=== PATIENT | male | born 1955 | race American Indian/Alaskan Native ===

== ENCOUNTER 2019-11-16 10:37 | Emergency (ER) | payer MEDICARE ==
[2019-11-16 11:24] VITALS: BP 143/93
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
[2019-11-16] MEDS ORDERED: NAPROXEN 500 MG TAB PO ONE (15:00)
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
[2019-11-16] MEDS ORDERED: HYDROcodone/ACETAMINOPHEN 5-325 MG TAB PO ONE (16:32)
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
== END 2019-11-16 17:49 | disposition home or self-care (01) ==
LOC: ED 10:37
DX: S33.5XXA Sprain of ligaments of lumbar spine, initial encounter (principal); I10 Essential (primary) hypertension; Z79.899 Other long term (current) drug therapy; V49.59XA Passenger injured in collision with other motor vehicles in traffic accident, initial encounter; Y93.89 Activity, other specified; Y92.488 Other paved roadways as the place of occurrence of the external cause; Y99.8 Other external cause status
CPT/HCPCS: 72100; 72131; 72220

== ENCOUNTER 2020-07-12 22:16 | Emergency (ER) | payer MEDICARE ==
[2020-07-12 22:52] VITALS: BP 154/86
[2020-07-13] MEDS ORDERED: ONDANSETRON 4 MG ODT TAB PO ONE (00:22)
--- NOTE | 2020-07-13 00:25 | Event Note ---
ED Screening Note Date of service: 07/13/20 Time: 00:23 ED Screening Note: 65-year-old male patient presents to the emergency department [facility] with complaints of nontraumatic right-sided back pain for 3 days. States it "feels like his kidney hurts." He began experiencing associated nausea and vomiting today. Patient has vomited multiple times in triage. No fever. No changes in bowel habits. No urinary symptoms. States he has never been diagnosed with a kidney infection before. General: Awake. Actively vomiting. Neck: Supple. Full range of motion intact. Cardiovascular: Normal peripheral perfusion. Pulmonary: No respiratory distress. Patient is speaking normally without use of accessory muscles. Skin: No apparent rashes or lesions. Neurological: No facial asymmetry. Speech is clear. Follows commands. Patient is alert and oriented. Musculoskeletal: Right CVA tenderness. Psych: Cooperative. Appropriate mood and affect. I have greeted and performed a focused rapid initial assessment of this patient. A comprehensive ED assessment and evaluation of the patient, analysis of all test results, and completion of the medical decision-making process will be conducted by additional ED providers. This initial assessment/diagnostic orders/clinical plan/treatment(s) is/are subject to change based on patients health status, clinical progression and re-assessment. Further treatment and workup at subsequent clinical provider's discretion. Patient/guardian urged not to elope from the ED as their condition may be serious if not clinically assessed and managed.
[2020-07-13 01:22] LABS: Basophils # (Auto) 0.1 K/mm3 (0.0-0.1); Basophils % (Auto) 1.1 % (0.0-1.8); Eosinophils % (Auto) 0.2 % (0.0-4.3); Hematocrit 38.9 % (35.5-45.6); Hemoglobin 13.1 gm/dl (11.8-15.2); Lymphocytes % (Auto) 12.7 % (13.4-35.0); Mean Corpuscular HGB Conc 34 % (32-34); Mean Corpuscular Volume 88 fl (84-94); Monocytes # (Auto) 0.5 K/mm3 (0.0-0.8); Monocytes % (Auto) 6.1 % (0.0-7.3); Platelet Count 231 K/mm3 (140-440); Red Blood Count 4.43 M/mm3 (3.65-5.03); Red Cell Distribution Width 14.9 % (13.2-15.2)
[2020-07-13 01:39] LABS: Alanine Aminotransferase 11 units/L (7-56); Albumin 4.3 g/dL (3.9-5); BUN/Creatinine Ratio 6; Blood Urea Nitrogen 9 mg/dL (9-20); Calcium 9.1 mg/dL (8.4-10.2); Hemolysis Index 5
== END 2020-07-13 07:30 ==
LOC: ED 22:16
DX: M54.6 Pain in thoracic spine (principal); R11.2 Nausea with vomiting, unspecified; Z53.21 Procedure and treatment not carried out due to patient leaving prior to being seen by health care provider
CPT/HCPCS: 36415; 80053; 80320; 83690; 83735; 85025; G0480

== ENCOUNTER 2021-05-03 08:13 | Inpatient (IN) | payer MEDICARE ==
--- NOTE | 2021-05-03 09:24 | Emergency Department Report ---
ED Male HPI - General Chief complaint: Urogenital-Male Stated complaint: painful urination Time Seen by Provider: 05/03/21 08:57 Source: EMS Mode of arrival: Ambulatory Limitations: No Limitations - History of Present Illness Initial comments: 66-year-old -[place] male presents to the ER today with complaints of severe buttocks and rectal pain. Patient states that has been having this pain for the past 7 to 8 days. He reports associated swelling, and difficulty sitting due to the pain. He states that the pain radiates into his testicles. He reports that he has been constipated and has had only one bowel movement in the past 7 to 8 days. He states that stool was small and hard. He denies any rectal bleeding or mucus coming from his stool. He states that he did go to an urgent care for his symptoms and he told him that it was related to hemorrhoids and give him a prescription for creams as well as stool softeners and other me dications that he does not recall the name of. He states that he took all of them and they have not helped his symptoms and he still has not had a proper bowel movement. He reports that he has had issues with urinary hesitancy for few months, but recently started having some dysuria. He denies any hematuria. He denies any isolated testicular pain or swelling. He denies any penile discharge. He has never been evaluated by urologist or have known history of BPH. He denies any associate abdominal pain or back pain. He denies fever or chills. His past medical history significant for hypertension, but he states that he was taken off his medications by his doctor long time ago. He also a dmits to alcohol abuse, but he states that recently he has decreased to just drinking sixpack once a week. Complaint: other (Rectal pain) -: days(s) (7-8 days ago) - Related Data Previous Rx's Medication Instructions Recorded Last Taken Type Methocarbamol [Robaxin] 500 mg PO TID #10 tablet 11/16/19 Unknown Rx Naproxen [Naprosyn] 500 mg PO BID PRN #15 tablet 11/16/19 Unknown Rx Allergies Allergy/AdvReac Type Severity Reaction Status Date / Time No Known Allergies Allergy Verified 05/03/21 08:17 ED Review of Systems ROS: Stated complaint: painful urination Other details as noted in HPI Comment: All other systems reviewed and negative Constitutional: denies: chills, fever Respiratory: denies: cough, shortness of breath, wheezing Cardiovascular: denies: chest pain, palpitations Gastrointestinal: constipation, other (Rectal pain and swelling) Genitourinary: dysuria. denies: urgency, frequency, hematuria, discharge, testicular pain, testicular mass Musculoskeletal: denies: back pain, joint swelling, arthralgia Skin: denies: rash, lesions ED Past Medical Hx - Past Medical History Hx Hypertension: Yes Additional medical history: back pain - Social History Smoking Status: Current Every Day Smoker Substance Use Type: Alcohol - Medications Home Medications: Home Medications Medication Instructions Recorded Confirmed Last Taken Type Methocarbamol [Robaxin] 500 mg PO TID #10 tablet 11/16/19 Unknown Rx Naproxen [Naprosyn] 500 mg PO BID PRN #15 tablet 11/16/19 Unknown Rx ED Physical Exam - General Limitations: No Limitations General appearance: alert, in no apparent distress - Head Head exam: Present: atraumatic, normocephalic, normal inspection - Eye Eye exam: Present: normal appearance, PERRL, EOMI Pupils: Present: normal accommodation - Respiratory Respiratory exam: Present: normal lung sounds bilaterally. Absent: respiratory distress, wheezes, rales, rhonchi - Cardiovascular Cardiovascular Exam: Present: regular rate, normal rhythm, normal heart sounds - GI/Abdominal GI/Abdominal exam: Present: soft. Absent: distended, tenderness, guarding, rebound - Rectal Rectal exam: Present: normal rectal tone, tenderness (severe ttp about 9 -10 oclock of the rectum with small area of induration but no point or apparent fluctuance; No erythema or cellulitis. Severe pain on HOMER), other. Absent: black stool, bloody stool, fecal impaction, hemorrhoids - exam: Present: normal inspection External exam: Present: normal external exam - Neurological Exam Neurological exam: Present: alert, oriented X3, CN II-XII intact - Psychiatric Psychiatric exam: Present: normal affect, normal mood - Skin Skin exam: Present: intact ED Course Vital Signs 05/03/21 08:16 Temperature 98.2 F Pulse Rate 93 H Respiratory 16 Rate Blood Pressure 164/91 [Right] O2 Sat by Pulse 100 Oximetry ED Medical Decision Making - Lab Data Result diagrams: 05/03/21 09:32 05/03/21 09:32 - Radiology Data Radiology results: report reviewed Patient: SAL PALMA MR#: [id number] : 1955 Acct:[id number] Age/Sex: 66 / M ADM Date: 05/03/21 Loc: ED Attending Dr: Ordering Physician: BETH KRAFT Date of Service: 05/03/21 Procedure(s): CT abdomen pelvis w con Accession Number(s): [id number] cc: BETH KRAFT CT abdomen pelvis w con INDICATION: severe rectal pain. COMPARISON: None TECHNIQUE: Abdominal and pelvic CT exam performed. All CT scans at this location are performed using CT dose reduction for ALARA by means of automated exposure control. FINDINGS: CT ABDOMEN and PELVIS: Lung Bases: No significant abnormality. Liver: No significant abnormality. Biliary: No significant abnormality. Spleen: No significant abnormality. Pancreas: No significant abnormality. Adrenals: No significant abnormality. Kidneys: Simple left renal cyst. Nonobstructing punctate left lower pole stone. Lymphatics: No lymphadenopathy. Vasculature: No significant abnormality. Bowel: No significant abnormality. There is a multiseptated perirectal collection measuring approximately 3.6 x 2.3 x 6.5 cm (transverse by anteroposterior by craniocaudal). Pelvis: No significant abnormality. Osseous Structures: No aggressive osseous lesion. Additional Findings: None IMPRESSION: 1. Septated perirectal abscess measuring 3.6 x 2.3 x 6.5 cm. Signer Name: Kin Heard MD Signed: 05/03/2021 11:08 AM Workstation Name: [id number] Transcribed By: Dictated By: Kin Heard MD Electronically Authenticated By: Kin Heard MD Signed Date/Time: 05/03/21 1108 DD/ 1107 TD/TT: - Medical Decision Making 1151: CT abdomen pelvis with IV contrast shows that patient has a septated perirectal abscess measuring 3.6 x 2.3 x 6.5 cm. Labs reviewed and he does have a mild elevated white count of 13.8, but CBC ot [facility]wise unremarkable and his CMP also unremarkable. Urinalysis is normal. Patient is resting more comfortably after receiving IV morphine. Given the abscess on CT and his elevated white count, blood cultures and IV antibiotics was ordered. Case was discussed with general surgeon on-call, Dr Peterson, she recommend admitting patient for IV antibiotics and will determine further treatment as far as drainage. 1154: Discusse case with Dr Armas, hospitalist regional sales trainer for admission Critical care attestation.: If time is entered above; I have spent that time in minutes in the direct care of this critically ill patient, excluding procedure time. ED Disposition Clinical Impression: Perirectal abscess Disposition: ADMITTED INPATIENT Is pt being admited?: Yes Does the pt Need Aspirin: No Condition: Stable
[2021-05-03 09:59] LABS: Basophils # (Auto) 0.1 K/mm3 (0.0-0.1); Basophils % (Auto) 0.6 % (0.0-1.8); Eosinophils % (Auto) 0.4 % (0.0-4.3); Hematocrit 38.3 % (35.5-45.6); Hemoglobin 12.3 gm/dl (11.8-15.2); Lymphocytes # (Auto) 1.3 K/mm3 (1.2-5.4); Lymphocytes % (Auto) 9.3 % (13.4-35.0); Mean Corpuscular HGB Conc 32 % (32-34); Mean Corpuscular Volume 85 fl (84-94); Monocytes # (Auto) 1.2 K/mm3 (0.0-0.8); Monocytes % (Auto) 8.5 % (0.0-7.3); Platelet Count 355 K/mm3 (140-440); Red Blood Count 4.54 M/mm3 (3.65-5.03); Red Cell Distribution Width 14.7 % (13.2-15.2)
[2021-05-03 10:21] LABS: Alanine Aminotransferase 9 units/L (7-56); BUN/Creatinine Ratio 9; Blood Urea Nitrogen 10 mg/dL (9-20); Calcium 9.4 mg/dL (8.4-10.2); Hemolysis Index 0
[2021-05-03 10:30] LABS: Bilirubin,Urine NEG (Negative); Blood,Urine SM (Negative); Color,Urine Yellow (Yellow); Urobilinogen,Urine < 2.0 mg/dL (<2.0)
[2021-05-03 10:39] LABS: RBC,Urine < 0.2 /HPF (0.0-6.0); WBC,Urine < 0.2 /HPF (0.0-6.0)
[2021-05-03] MEDS ORDERED: MORPHINE 4 MG/1 ML INJ IV ONE (10:54)
[2021-05-03] MEDS ORDERED: ONDANSETRON 4 MG/2 ML INJ IV ONE (10:54)
--- NOTE | 2021-05-03 11:13 | Cat Scan Report ---
CT abdomen pelvis w con INDICATION: severe rectal pain. COMPARISON: None TECHNIQUE: Abdominal and pelvic CT exam performed. All CT scans at this location are performed using CT dose reduction for ALARA by means of automated exposure control. FINDINGS: CT ABDOMEN and PELVIS: Lung Bases: No significant abnormality. Liver: No significant abnormality. Biliary: No significant abnormality. Spleen: No significant abnormality. Pancreas: No significant abnormality. Adrenals: No significant abnormality. Kidneys: Simple left renal cyst. Nonobstructing punctate left lower pole stone. Lymphatics: No lymphadenopathy. Vasculature: No significant abnormality. Bowel: No significant abnormality. There is a multiseptated perirectal collection measuring approxim ately 3.6 x 2.3 x 6.5 cm (transverse by anteroposterior by craniocaudal). Pelvis: No significant abnormality. Osseous Structures: No aggressive osseous lesion. Additional Findings: None IMPRESSION: 1. Septated perirectal abscess measuring 3.6 x 2.3 x 6.5 cm. Signer Name: Kin Heard MD Signed: 05/03/2021 11:08 AM Workstation Name: [id number]
[2021-05-03] MEDS ORDERED: PIPERACILLIN/TAZOBACTAM 3.375 3.375 GM/50 ML BAG IV ONE (11:29)
[2021-05-03] MEDS ORDERED: ACETAMINOPHEN 325 MG TAB PO PRN ×2 (12:00→13:00)
[2021-05-03] MEDS ORDERED: HYDROmorphone 1 MG/1 ML INJ IV PRN (12:30)
[2021-05-03] MEDS ORDERED: SODIUM CHLORIDE 0.9% 1000 ML IV SOLN IV ONE (12:30)
[2021-05-03] MEDS ORDERED: ONDANSETRON 4 MG/2 ML INJ IV PRN (13:00)
[2021-05-03] MEDS ORDERED: ALBUTEROL 2.5 MG/3 ML NEBU IH PRN (13:00)
[2021-05-03] MEDS ORDERED: SODIUM CHLORIDE 0.9% 1000 ML 1,000 ML IV SCH (13:00)
[2021-05-03] MEDS: HYDROmorphone 1 MG/1 ML INJ IV PRN ×2 (14:42→23:28)
--- NOTE | 2021-05-03 15:57 | Consultation ---
History of Present Illness Consult date: 05/03/21 Chief complaint: rectal pain - History of present illness History of present illness: 66 yo M with hx of HTN who presented to Er with 7 days of gradually worsening rectal pain. He states he has never had anything like this before. No inciting factors. Pain radiates to perineum/testicles. +Constipation. No f/c, cp, sob, n/v, abd pain. He denies hematochezia or melena. He was seen at urgent care and prescribed medications to treat hemorrhoids without relief. He states the only think that has helped with pain is IV medication administered in hospital. W/u in ER revealed rectal abscess. Past History Past Medical History: hypertension Past Surgical History: No surgical history Social history: alcohol abuse Family history: no significant family history Medications and Allergies Allergies Allergy/AdvReac Type Severity Reaction Status Date / Time No Known Allergies Allergy Verified 05/03/21 08:17 Home Medications Medication Instructions Recorded Confirmed Last Taken Type Methocarbamol [Robaxin] 500 mg PO TID #10 tablet 11/16/19 Unknown Rx Naproxen [Naprosyn] 500 mg PO BID PRN #15 tablet 11/16/19 Unknown Rx Active Meds: Active Medications Acetaminophen (Acetaminophen 325 Mg Tab) 650 mg PO Q4H PRN PRN Reason: Pain MILD(1-3)/Fever >100.5/MCLAIN Albuterol (Albuterol 2.5 Mg/3 Ml Nebu) 2.5 mg IH Q4HRT PRN PRN Reason: Shortness Of Breath Docusate Sodium (Docusate Sodium 100 Mg Cap) 100 mg PO BID JUANPABLO Hydromorphone HCl (Hydromorphone 1 Mg/1 Ml Inj) 0.25 mg IV Q4H PRN PRN Reason: Pain, Moderate (4-6) Hydromorphone HCl (Hydromorphone 1 Mg/1 Ml Inj) 0.5 mg IV Q8H PRN PRN Reason: Pain , Severe (7-10) Last Admin: 05/03/21 14:42 Dose: 0.5 mg Sodium Chloride (Nacl 0.9% 1000 Ml) 1,000 mls @ 75 mls/hr IV DIRECT JUANPABLO Piperacillin Sod/Tazobactam Sod (Zosyn/Ns 4.5gm/100ml) 4.5 gm in 100 mls @ 200 mls/hr IV Q8H JUANPABLO; Protocol Ondansetron HCl (Ondansetron 4 Mg/2 Ml Inj) 4 mg IV Q8H PRN PRN Reason: Nausea And Vomiting Oxycodone/Acetaminophen (Oxycodone /Acetaminophen 5-325mg Tab) 1 tab PO Q6H PRN PRN Reason: Pain, Moderate (4-6) Polyethylene Glycol (Polyethylene Glycol 3350 17 Gm Powder) 17 gm PO QDAY JUANPABLO Sodium Chloride (Sodium Chloride 0.9% 10 Ml Flush Syringe) 10 ml IV BID JUANPABLO Last Admin: 05/03/21 13:10 Dose: 10 ml Sodium Chloride (Sodium Chloride 0.9% 10 Ml Flush Syringe) 10 ml IV PRN PRN PRN Reason: LINE FLUSH Review of Systems All systems: negative (10 pt ros performed and negative except for that listed in HPI) Exam Vital Signs Temp Pulse Resp BP Pulse Ox 98.2 F 93 H 16 164/91 100 05/03/21 08:16 05/03/21 08:16 05/03/21 08:16 05/03/21 08:16 05/03/21 08:16 Narrative exam: Gen: AAOx3. NAD CV: S1, S2+ resp; even and unlabored Abd: soft, NT, ND Ext: no c/c/e Rectal: with track sweeper present: External exam performed only due to pain. There is no gross blood. External hemorrhoids presents. There is induration of the anorectal skin and soft tissue on the left side without fluctuance or erythema. + TTP in this location. Results - Labs 05/03/21 09:32 05/03/21 09:32 Abnormal lab results 05/03/21 Range/Units 09:32 WBC 13.8 H (4.5-11.0) K/mm3 MCH 27 L (28-32) pg Lymph % (Auto) 9.3 L (13.4-35.0) % Placer % (Auto) 8.5 H (0.0-7.3) % Placer # (Auto) 1.2 H (0.0-0.8) K/mm3 Seg Neutrophils % 81.2 H (40.0-70.0) % Seg Neutrophils # 11.3 H (1.8-7.7) K/mm3 Diabetes panel 05/03/21 Range/Units 09:32 Sodium 139 (137-145) mmol/L Potassium 4.0 (3.6-5.0) mmol/L Chloride 101.9 (98-107) mmol/L Carbon Dioxide 24 (22-30) mmol/L BUN 10 (9-20) mg/dL Creatinine 1.1 (0.8-1.3) mg/dL Glucose 99 (75-100) mg/dL Calcium 9.4 (8.4-10.2) mg/dL AST 10 (5-40) units/L ALT 9 (7-56) units/L Alkaline Phosphatase 87 (35-129) units/L Total Protein 6.9 (6.3-8.2) g/dL Albumin 4.0 (3.9-5) g/dL Calcium panel 05/03/21 Range/Units 09:32 Calcium 9.4 (8.4-10.2) mg/dL Albumin 4.0 (3.9-5) g/dL Pituitary panel 05/03/21 Range/Units 09:32 Sodium 139 (137-145) mmol/L Potassium 4.0 (3.6-5.0) mmol/L Chloride 101.9 (98-107) mmol/L Carbon Dioxide 24 (22-30) mmol/L BUN 10 (9-20) mg/dL Creatinine 1.1 (0.8-1.3) mg/dL Glucose 99 (75-100) mg/dL Calcium 9.4 (8.4-10.2) mg/dL Adrenal panel 05/03/21 Range/Units 09:32 Sodium 139 (137-145) mmol/L Potassium 4.0 (3.6-5.0) mmol/L Chloride 101.9 (98-107) mmol/L Carbon Dioxide 24 (22-30) mmol/L BUN 10 (9-20) mg/dL Creatinine 1.1 (0.8-1.3) mg/dL Glucose 99 (75-100) mg/dL Calcium 9.4 (8.4-10.2) mg/dL Total Bilirubin 0.40 (0.1-1.2) mg/dL AST 10 (5-40) units/L ALT 9 (7-56) units/L Alkaline Phosphatase 87 (35-129) units/L Total Protein 6.9 (6.3-8.2) g/dL Albumin 4.0 (3.9-5) g/dL - Imaging CT scan - abdomen: report reviewed, image reviewed CT scan - pelvis: report reviewed, image reviewed Assessment and Plan 66 yo M with perirectal abscess Plan: 1. FLD, soft diet in am 2. gentle IVF 3. IV abx 4. bowel regimen 5. prn pain control 6. sitz baths 7. repeat CBC in am 8. If no improvement in next 48 hours with abx, will consider for rectal exam under anesthesia on Wednesday Plan discussed with patient in detail and questions answered. Thank you, please call with questions.
[2021-05-03] MEDS: hydrALAZINE 20 MG/1 ML INJ IV PRN ×2 (16:48→23:27)
[2021-05-03] MEDS: oxyCODONE /ACETAMINOPHEN 5-325MG TAB PO PRN (16:50)
--- NOTE | 2021-05-03 18:05 | History and Physical Report ---
History of Present Illness Date of admission: 05/03/21 12:00 Chief complaint: It hurts around my butt History of present illness: 66 YO Male with HTN, Nicotine Dependence, ETOH Dependence presents to ED for evaluation. Patient reports "it hurts around my butt". Patient states that he has experienced pain in the area of his rectum over the past 1 week with persistent symptoms over the same timeframe. Patient states the pain is 6/10, constant, with radiation to the lower abdomen and testicular area, not worsened with exertion, not relieved with rest. Patient was seen and evaluated in urgent care and was subsequently discharged home with supportive care. Patient reports persistent and worsening symptoms at this time and presents to [facility] for further care and evaluation. Patient seen and evaluated in the emergency department. All lab and imaging studies reviewed. Patient with CT scan of the abdomen pelvis and was found to have a perirectal abscess, complicated by sepsis. Ernestina josé team consulted in ED. Patient admitted to medical floor and initiated on sepsis protocol. Patient denies fever, chills, chest pain, palpitation or productive cough, skin rash, recent contact, known exposure to COVID-19. No prior admission for review. No medication listed at time of admission for reconciliation. Advanced care planning conducted in ED. Past History Past Medical History: hypertension Past Surgical History: No surgical history Social history: single, smoking, alcohol abuse Family history: no significant family history Medications and Allergies Allergies Allergy/AdvReac Type Severity Reaction Status Date / Time No Known Allergies Allergy Verified 05/03/21 08:17 Home Medications Medication Instructions Recorded Confirmed Last Taken Type Methocarbamol [Robaxin] 500 mg PO TID #10 tablet 11/16/19 Unknown Rx Naproxen [Naprosyn] 500 mg PO BID PRN #15 tablet 11/16/19 Unknown Rx Active Meds: Active Medications Acetaminophen (Acetaminophen 325 Mg Tab) 650 mg PO Q4H PRN PRN Reason: Pain MILD(1-3)/Fever >100.5/MCLAIN Albuterol (Albuterol 2.5 Mg/3 Ml Nebu) 2.5 mg IH Q4HRT PRN PRN Reason: Shortness Of Breath Docusate Sodium (Docusate Sodium 100 Mg Cap) 100 mg PO BID JUANPABLO Hydralazine HCl (Hydralazine 20 Mg/1 Ml Inj) 10 mg IV Q6H PRN PRN Reason: Blood Pressure Last Admin: 05/03/21 16:48 Dose: 10 mg Hydromorphone HCl (Hydromorphone 1 Mg/1 Ml Inj) 0.25 mg IV Q4H PRN PRN Reason: Pain, Moderate (4-6) Hydromorphone HCl (Hydromorphone 1 Mg/1 Ml Inj) 0.5 mg IV Q8H PRN PRN Reason: Pain , Severe (7-10) Last Admin: 05/03/21 14:42 Dose: 0.5 mg Sodium Chloride (Nacl 0.9% 1000 Ml) 1,000 mls @ 75 mls/hr IV DIRECT JUANPABLO Piperacillin Sod/Tazobactam Sod (Zosyn/Ns 4.5gm/100ml) 4.5 gm in 100 mls @ 200 mls/hr IV Q8H JUANPABLO; Protocol Ondansetron HCl (Ondansetron 4 Mg/2 Ml Inj) 4 mg IV Q8H PRN PRN Reason: Nausea And Vomiting Oxycodone/Acetaminophen (Oxycodone /Acetaminophen 5-325mg Tab) 1 tab PO Q6H PRN PRN Reason: Pain, Moderate (4-6) Last Admin: 05/03/21 16:50 Dose: 1 tab Polyethylene Glycol (Polyethylene Glycol 3350 17 Gm Powder) 17 gm PO QDAY JUANPABLO Sodium Chloride (Sodium Chloride 0.9% 10 Ml Flush Syringe) 10 ml IV BID JUANPABLO Last Admin: 05/03/21 13:10 Dose: 10 ml Sodium Chloride (Sodium Chloride 0.9% 10 Ml Flush Syringe) 10 ml IV PRN PRN PRN Reason: LINE FLUSH Review of Systems Constitutional: no weight loss, no weight gain, no chills, no sweats Ears, nose, mouth and throat: no ear pain, no tinnitis, no nose pain, no nasal discharge Cardiovascular: no chest pain, no palpitations, no rapid/irregular heart beat, no edema, no lightheadedness Respiratory: no cough, no cough with sputum, no excessive sputum, no hemoptysis, no shortness of breath Gastrointestinal: no abdominal pain, no vomiting, no diarrhea, no constipation, no BRBPR, no melena Genitourinary Male: no flank pain, no discharge Rectal: pain, no incontinence, no bleeding, no itching, no hemorrhoids Musculoskeletal: no neck stiffness, no neck pain, no shooting arm pain, no arm numbness/tingling, no shooting leg pain, no leg numbness/tingling Integumentary: no rash, no pruritis, no sores Neurological: no head injury, no transient paralysis, no weakness, no tingling, no seizures, no tremors Psychiatric: no anxiety, no change in sleep habits, no insomnia, no suicidal ideation, no hallucinations Endocrine: no cold intolerance, no heat intolerance, no excessive thirst, no polydipsia, no polyuria, no excessive sweating Hematologic/Lymphatic: no easy bruising, no easy bleeding, no lymphadenopathy, no lymphedema Allergic/Immunologic: no urticaria, no wheezing, no angioedema Exam - Constitutional Vitals: Temp Pulse Resp BP Pulse Ox 98.2 F 106 H 18 178/125 96 05/03/21 08:16 05/03/21 16:48 05/03/21 14:42 05/03/21 16:48 05/03/21 15:59 General appearance: Present: mild distress - EENT Eyes: Present: PERRL ENT: hearing intact, clear oral mucosa - Neck Neck: Present: supple, normal ROM - Respiratory Respiratory effort: normal Respiratory: bilateral: CTA - Cardiovascular Heart Sounds: Present: S1 & S2. Absent: rub, click - Extremities Extremities: pulses symmetrical, No edema Peripheral Pulses: abnormal (Capillary refill greater than 3.5 seconds) - Abdominal General gastrointestinal: Present: soft, non-tender, non-distended, normal bowel sounds Male genitourinary: Present: normal - Rectal Rectal Exam: tenderness - Integumentary Integumentary: Present: clear, warm, dry - Musculoskeletal Musculoskeletal: gait normal, strength equal bilaterally - Psychiatric Psychiatric: appropriate mood/affect, intact judgment & insight - Neurologic Neurologic: CNII-XII intact, moves all extremities Results - Labs CBC & Chem 7: 05/03/21 09:32 05/03/21 09:32 Labs: Abnormal lab results 05/03/21 05/03/21 Range/Units 09:32 16:32 WBC 13.8 H (4.5-11.0) K/mm3 MCH 27 L (28-32) pg Lymph % (Auto) 9.3 L (13.4-35.0) % [place] % (Auto) 8.5 H (0.0-7.3) % [place] # (Auto) 1.2 H (0.0-0.8) K/mm3 Seg Neutrophils % 81.2 H (40.0-70.0) % Seg Neutrophils # 11.3 H (1.8-7.7) K/mm3 Lactic Acid 2.30 H* (0.7-2.0) mmol/L Assessment and Plan - Patient Problems (1) Sepsis Current Visit: Yes Status: Acute Plan to address problem: Sepsis protocol: IV antibiotic therapy, IV fluid resuscitation therapy, blood culture, serial lactic acid level, maintain mean arterial pressure greater than equal to 65, monitor fluid balance, CBC, CMP, urinalysis, CT scan abdomen and pelvis. (2) Perirectal abscess Current Visit: Yes Status: Acute Plan to address problem: CT scan abdomen pelvis, IV antibiotic therapy, surgery team consulted in ED. Further care and evaluation as per surgical team. (3) Alcohol dependence Current Visit: Yes Status: Acute Plan to address problem: Thiamine, folic acid, multivitamin daily, [facility] protocol. (4) Nicotine dependence Current Visit: Yes Status: Acute Qualifiers: Nicotine product type: cigarettes Substance use status: in withdrawal Qualified Code(s): F17.213 - Nicotine dependence, cigarettes, with withdrawal Plan to address problem: Smoking cessation counseling, supportive care, behavior change counseling, +15 minutes. (5) DVT prophylaxis Current Visit: Yes Status: Acute Plan to address problem: SCDs bilateral lower extremities while in bed, patient is ambulatory (6) Advance care planning Current Visit: Yes Status: Acute Plan to address problem: Disease education conducted, care plan discussed, diagnoses discussed, prognosis discussed, patient is full code. Patient knowledges understanding and agreement with care plan, +30 minutes.
[2021-05-03] MEDS ORDERED: LORazepam 2 MG/ML VIAL IV PRN (18:14)
[2021-05-03] MEDS: MULTIVITAMINS ,THERAPEUTIC TAB PO SCH (21:15)
[2021-05-03] MEDS: PIPERACIL/TAZOBACTA 4.5/NS 100 4.5 GM/100 ML VIAL IV SCH (21:15)
[2021-05-03] MEDS: FOLIC ACID 1 MG TAB PO SCH (21:15)
[2021-05-03] MEDS: THIAMINE 100 MG TAB PO SCH (21:15)
[2021-05-03] MEDS: DOCUSATE SODIUM 100 MG CAP PO SCH (21:15)
[2021-05-04] MEDS: PIPERACIL/TAZOBACTA 4.5/NS 100 4.5 GM/100 ML VIAL IV SCH ×3 (04:58→21:38)
[2021-05-04] MEDS: HYDROmorphone 1 MG/1 ML INJ IV PRN (05:07)
[2021-05-04] MEDS: oxyCODONE /ACETAMINOPHEN 5-325MG TAB PO PRN ×2 (07:25→13:45)
[2021-05-04] MEDS: FOLIC ACID 1 MG TAB PO SCH (10:00)
[2021-05-04] MEDS: THIAMINE 100 MG TAB PO SCH (10:00)
[2021-05-04] MEDS: DOCUSATE SODIUM 100 MG CAP PO SCH ×2 (10:00→21:38)
[2021-05-04] MEDS: MULTIVITAMINS ,THERAPEUTIC TAB PO SCH (10:00)
[2021-05-04] MEDS: POLYETHYLENE GLYCOL 3350 17 GM POWDER PO SCH (10:01)
--- NOTE | 2021-05-04 11:35 | Progress Note ---
Assessment and Plan 66 yo M with perirectal abscess Plan: 1. NPO p MN 2. gentle IVF 3. IV abx 4. bowel regimen 5. prn pain control 6. sitz baths 7. repeat CBC pending 8. Will tentatively plan for OR tomorrow - rectal exam under anesthesia with drainage of perirectal abscess. Discussed with patient in detail, consent obtained. Thank you, please call with questions. Subjective Date of service: 05/04/21 Narrative: Pt seen and examined. c/o rectal pain, unchanged. Passing flatus but no BM. Continues to have poor appetite. Tm 100.2 Objective Vital Signs - 12hr 05/04/21 05/04/21 00:06 06:28 Temperature 100.2 F H Pulse Rate 109 H Respiratory 20 Rate Blood Pressure 138/83 O2 Sat by Pulse 96 83 L Oximetry - General physical appearance Narrative Exam: Gen; AAOx3. NAD CV; S1, S2+ resp; even and unlabored Ext; no c/c/e - Labs 05/03/21 09:32 05/03/21 09:32
[2021-05-04 14:01] LABS: Hemoglobin 11.4 gm/dl (11.8-15.2)
[2021-05-04 14:14] LABS: Hematocrit 35.9 % (35.5-45.6); Mean Corpuscular HGB Conc 32 % (32-34); Mean Corpuscular Volume 85 fl (84-94); Platelet Count 362 K/mm3 (140-440); Red Blood Count 4.23 M/mm3 (3.65-5.03); Red Cell Distribution Width 14.5 % (13.2-15.2)
--- NOTE | 2021-05-04 14:52 | Progress Note ---
Assessment and Plan Assessment and Plan - Patient Problems (1) Sepsis Current Visit: Yes Status: Acute Plan to address problem: Sepsis protocol: IV antibiotic therapy, IV fluid resuscitation therapy, blood culture, serial lactic acid level, maintain mean arterial pressure greater than equal to 65, monitor fluid balance, CBC, CMP, urinalysis, CT scan abdomen and pelvis. (2) Perirectal abscess Current Visit: Yes Status: Acute Plan to address problem: Perirectal abscess spontaneously draining We will defer to surgery regarding further care (3) Alcohol dependence Current Visit: Yes Status: Acute Plan to address problem: Thiamine, folic acid, multivitamin daily, CIWA protocol. (4) Nicotine dependence Current Visit: Yes Status: Acute Qualifiers: Nicotine product type: cigarettes Substance use status: in withdrawal Qualified Code(s): F17.213 - Nicotine dependence, cigarettes, with withdrawal Plan to address problem: Smoking cessation counseling, supportive care, behavior change counseling, +15 minutes. (5) DVT prophylaxis Current Visit: Yes Status: Acute Plan to address problem: SCDs bilateral lower extremities while in bed, patient is ambulatory (6) Advance care planning Current Visit: Yes Status: Acute Plan to address problem: Disease education conducted, care plan discussed, diagnoses discussed, prognosis discussed, patient is full code. Patient knowledges understanding and agreement with care plan, +30 minutes. Subjective Date of service: 05/04/21 Principal diagnosis: Perirectal abscess Interval history: 66 YO Male with HTN, Nicotine Dependence, ETOH Dependence presents to ED for evaluation. Patient reports "it hurts around my butt". Patient states that he has experienced pain in the area of his rectum over the past 1 week with persistent symptoms over the same timeframe. Patient states the pain is 6/10, constant, with radiation to the lower abdomen and testicular area, not worsened with exertion, not relieved with rest. Patient was seen and evaluated in urgent care and was subsequently discharged home with supportive care. Patient reports persistent and worsening symptoms at this time and presents to [facility] for further care and evaluation. Patient seen and evaluated in the emergency department. All lab and imaging studies reviewed. Patient with CT scan of the abdomen pelvis and was found to have a perirectal abscess, complicated by sepsis. Surgery team consulted in ED. Patient admitted to medical floor and initiated on sepsis protocol. Patient denies fever, chills, chest pain, palpitation or productive cough, skin rash, recent contact, known exposure to COVID-19. No prior admission for review. No medication listed at time of admission for reconciliation. Advanced care planning conducted in ED. 05/04/2021 Patient is to get MD for surgery tomorrow Patient had spontaneous rupture of the abscess and abscess fluid draining during my exam Objective - Constitutional Vitals: Vital Signs - 12hr 05/04/21 05/04/21 06:28 11:04 Temperature 100.2 F H 98.2 F Pulse Rate 109 H 96 H Respiratory 20 22 Rate Blood Pressure 138/83 148/100 O2 Sat by Pulse 83 L 88 Oximetry General appearance: Present: no acute distress, well-nourished - EENT Eyes: PERRL, EOM intact ENT: hearing intact, clear oral mucosa Ears: bilateral: normal - Neck Neck: supple, normal ROM - Respiratory Respiratory effort: normal Respiratory: bilateral: CTA - Breasts Breasts: normal - Cardiovascular Heart rate: 78 Rhythm: regular Heart Sounds: Present: S1 & S2. Absent: gallop, rub Extremities: pulses intact, No edema, normal color, Full ROM - Gastrointestinal General gastrointestinal: Present: soft, non-tender, non-distended, normal bowel sounds Rectal Exam: other (Perirectal abscess ruptured and draining spontaneously) - Genitourinary Male genitourinary: normal - Integumentary Integumentary: clear, warm, dry - Musculoskeletal Musculoskeletal: 1, strength equal bilaterally - Neurologic Neurologic: moves all extremities - Psychiatric Psychiatric: memory intact, appropriate mood/affect, intact judgment & insight - Labs CBC & Chem 7: 05/04/21 13:21 05/03/21 09:32 Labs: Abnormal lab results 05/03/21 05/04/21 Range/Units 16:32 13:21 WBC 13.2 H (4.5-11.0) K/mm3 Hgb 11.4 L (11.8-15.2) gm/dl MCH 27 L (28-32) pg Lactic Acid 2.30 H* (0.7-2.0) mmol/L
[2021-05-04] MEDS: hydrALAZINE 20 MG/1 ML INJ IV PRN (18:22)
[2021-05-05 04:10] VITALS: BP 142/93
[2021-05-05] MEDS: PIPERACIL/TAZOBACTA 4.5/NS 100 4.5 GM/100 ML VIAL IV SCH (04:12)
[2021-05-05 05:58] LABS: Basophils # (Auto) 0.1 K/mm3 (0.0-0.1); Basophils % (Auto) 0.5 % (0.0-1.8); Eosinophils # (Auto) 0.2 K/mm3 (0.0-0.4); Eosinophils % (Auto) 1.4 % (0.0-4.3); Hematocrit 35.1 % (35.5-45.6); Hemoglobin 11.4 gm/dl (11.8-15.2); Lymphocytes # (Auto) 1.1 K/mm3 (1.2-5.4); Lymphocytes % (Auto) 8.8 % (13.4-35.0); Mean Corpuscular HGB Conc 33 % (32-34); Mean Corpuscular Volume 85 fl (84-94); Monocytes # (Auto) 0.7 K/mm3 (0.0-0.8); Monocytes % (Auto) 5.8 % (0.0-7.3); Platelet Count 402 K/mm3 (140-440); Red Blood Count 4.13 M/mm3 (3.65-5.03); Red Cell Distribution Width 14.7 % (13.2-15.2)
[2021-05-05 06:23] LABS: BUN/Creatinine Ratio 8; Blood Urea Nitrogen 7 mg/dL (9-20); Calcium 8.3 mg/dL (8.4-10.2); Hemolysis Index 1
--- NOTE | 2021-05-05 08:37 | Progress Note ---
Assessment and Plan 66 yo M with perirectal abscess - spontaneously drained Plan: 1. reg diet 2. bowel regimen 3. prn pain control 4. sitz baths TID 5. May transition to oral augmentin x 12 more days 6. As abscess has spontaneously drained, will cancer OR today. OK to dc from surgery standpoint. D/W Dr. Thakkar. Thank you, please call with questions. Subjective Date of service: 05/05/21 Narrative: Pt seen and examined. No acute complaints. Abscess spontaneously drained yesterday. He states he feels much better. States there was a copious amount of purulent fluid. Has performed sitz baths. Pain is almost completely resolved. Objective Vital Signs - 12hr 05/04/21 05/04/21 05/04/21 21:59 22:50 23:31 Temperature 98.3 F Pulse Rate 103 H Respiratory 20 Rate Blood Pressure 157/92 O2 Sat by Pulse 93 98 96 Oximetry 05/05/21 05/05/21 04:10 08:33 Temperature 99.6 F Pulse Rate 98 H Respiratory 20 Rate Blood Pressure 142/93 O2 Sat by Pulse 95 94 Oximetry - General physical appearance Narrative Exam: Gen; AAOx3. NAD CV: S1, S2+ Resp; even and unlabored Abd: soft Rectal: External exam only. Purulent drainage on dressing. Anorectal skin induration significantly improved. - Labs 05/05/21 05:31 05/05/21 05:31 Diabetes panel 05/05/21 Range/Units 05:31 Sodium 138 (137-145) mmol/L Potassium 3.6 (3.6-5.0) mmol/L Chloride 101.1 (98-107) mmol/L Carbon Dioxide 22 (22-30) mmol/L BUN 7 L (9-20) mg/dL Creatinine 0.9 (0.8-1.3) mg/dL Glucose 87 (75-100) mg/dL Calcium 8.3 L (8.4-10.2) mg/dL Calcium panel 05/05/21 Range/Units 05:31 Calcium 8.3 L (8.4-10.2) mg/dL Pituitary panel 05/05/21 Range/Units 05:31 Sodium 138 (137-145) mmol/L Potassium 3.6 (3.6-5.0) mmol/L Chloride 101.1 (98-107) mmol/L Carbon Dioxide 22 (22-30) mmol/L BUN 7 L (9-20) mg/dL Creatinine 0.9 (0.8-1.3) mg/dL Glucose 87 (75-100) mg/dL Calcium 8.3 L (8.4-10.2) mg/dL Adrenal panel 05/05/21 Range/Units 05:31 Sodium 138 (137-145) mmol/L Potassium 3.6 (3.6-5.0) mmol/L Chloride 101.1 (98-107) mmol/L Carbon Dioxide 22 (22-30) mmol/L BUN 7 L (9-20) mg/dL Creatinine 0.9 (0.8-1.3) mg/dL Glucose 87 (75-100) mg/dL Calcium 8.3 L (8.4-10.2) mg/dL
[2021-05-05] MEDS: DOCUSATE SODIUM 100 MG CAP PO SCH (09:28)
[2021-05-05] MEDS: MULTIVITAMINS ,THERAPEUTIC TAB PO SCH (09:28)
[2021-05-05] MEDS: THIAMINE 100 MG TAB PO SCH (09:28)
[2021-05-05] MEDS: FOLIC ACID 1 MG TAB PO SCH (09:28)
[2021-05-05] MEDS: POLYETHYLENE GLYCOL 3350 17 GM POWDER PO SCH (09:29)
--- NOTE | 2021-05-05 12:23 | Discharge Summary ---
Providers - Providers Date of Admission: 05/03/21 12:00 Date of discharge: 05/05/21 Attending physician: BLANE STEPHENS 05/03/21 11:49 Consult to Physician [CONS] Stat Comment: Consulting Provider: RENETTA TORRES Physician Instructions: Reason For Exam: Perirectal abscess Primary care physician: BRANDI STRATTON Hospitalization Condition: Stable Hospital course: --Sepsis/due to perirectal abscess Current Visit: Yes Status: Acute Sepsis protocol: IV antibiotic therapy, IV fluid resuscitation therapy, blood culture, serial lactic acid level, maintain mean arterial pressure greater than equal to 65, monitor fluid balance, CBC, CMP, urinalysis, CT scan abdomen and pelvis. -- Perirectal abscess Current Visit: Yes Status: Acute Perirectal abscess spontaneously draining We will defer to surgery regarding further care --leukocytosis Current Visit: Yes Status: Acute Due to perirectal abscess --lactic acidosis Current Visit: Yes Status: Acute Due to sepsis --Alcohol dependence Current Visit: Yes Status: Acute Thiamine, folic acid, multivitamin daily, CIWA protocol if needed --Nicotine dependence Current Visit: Yes Status: Acute Smoking cessation counseling, supportive care, behavior change counseling, +15 minutes. Disposition: 01 HOME / SELF CARE / HOMELESS Final Discharge Diagnosis (Prints w/discharge instructions): Perirectal abscess. Sepsis due to perirectal abscess. Ongoing tobacco use. History of chronic alcohol use Time spent for discharge: 35 min Core Measure Documentation - Palliative Care Palliative Care/ Comfort Measures: Not Applicable - Core Measures Any of the following diagnoses?: none Exam - Constitutional Vitals: Temp Pulse Resp BP Pulse Ox 99.6 F 98 H 20 142/93 94 05/05/21 04:10 05/05/21 04:10 05/05/21 04:10 05/05/21 04:10 05/05/21 08:33 Plan Additional Instructions: Patient instructions. reg diet, sitz baths TID , continue oral antibiotics . Follow-up with primary care physician and general surgeon per schedule. If you have worsening symptoms contact MD or go to the nearest emergency room as needed. Smoking cessation advised, nicotine patch as needed. Strongly advised to quit chronic alcohol use. Follow up with: BRANDI STRATTON MD [Primary Care Provider] - 3-5 Days RENETTA TORRES DO [Staff Physician] - 14 Days Prescriptions: Amoxicillin/K Clav Tab [Augmentin 875MG TAB] 1 each PO Q12HR #24 tablet Docusate Sodium [Colace CAP] 100 mg PO BID #20 capsule Folic Acid [Folvite] 1 mg PO QDAY #30 tablet polyethylene glycoL 3350 [Miralax 3350] 17 gm PO QDAY #30 powd.pack oxyCODONE /ACETAMINOPHEN [Percocet 5/325 mg] 1 tab PO BID PRN #14 tablet PRN Reason: Pain, Moderate (4-6) Thiamine [Vitamin B-1] 100 mg PO QDAY #30 tablet
[2021-05-05] MEDS ORDERED: AMOXICILLIN/K CLAV 875/125MG TAB PO SCH (22:00)
== END 2021-05-05 14:54 | disposition home or self-care (01) | DRG 872 ==
LOC: ED 08:13 → 3A 12:00
PROVIDERS: ADMIT Internal Medicine; ATTEND Internal Medicine
DX: A41.9 Sepsis, unspecified organism (principal); K61.1 Rectal abscess; F17.213 Nicotine dependence, cigarettes, with withdrawal; F10.20 Alcohol dependence, uncomplicated; I10 Essential (primary) hypertension
CPT/HCPCS: 36415; 74177; 80048; 80053; 81001; 82140; 85025; 85027; 86850; 86900; 86901; 87040; 94760; G0378; Q0162; J0360; J1170; J2270; J2405; J2543; J7030; Q9967